=== PATIENT | female | born 1950 | race Caucasian/White ===

== ENCOUNTER 2016-06-15 10:56 | Inpatient (IN) | payer OTHER ==
[~2016-06-15] VITALS: Ht 165.1 cm; Wt 88.1 kg
[2016-06-15 10:45] VITALS: BP 140/49
[2016-06-15] MEDS ORDERED: KP VITAMIN PO (12:28)
[2016-06-15] MEDS ORDERED: CIT PO (12:30)
[2016-06-15] MEDS ORDERED: LANTUS SOL100 UNITS/ SC (12:30)
[2016-06-15] MEDS ORDERED: ACIDOPHILUS PO (12:30)
[2016-06-15] MEDS ORDERED: ACID REDUCER150 MG PO (12:31)
[2016-06-15] MEDS ORDERED: ALLOPURINOL100 MG PO (12:32)
[2016-06-15] MEDS ORDERED: ASPIRIN EC LOW81 MG PO (12:32)
[2016-06-15] MEDS ORDERED: TRADJENTA5 MG PO (12:32)
[2016-06-15] MEDS ORDERED: FERROUS SULFAT325 M1 PO (12:33)
[2016-06-15] MEDS ORDERED: LIPITOR40 MG PO (12:33)
[2016-06-15] MEDS ORDERED: CARDIZEM C2 PO (12:33)
[2016-06-15] MEDS ORDERED: PRINIVIL5 MG PO (12:34)
[2016-06-15] MEDS ORDERED: FLUTICASONE PR50 MCG (12:34)
--- NOTE | 2016-06-15 13:07 | HISTORY AND PHYSICAL ---
ADMITTED: 06/15/2016 HISTORY OF PRESENT ILLNESS: The patient is a 65-year-old -[place] female who was brought in because of mental status changes. The patient apparently has been sleeping more than a couple of hours over the past 5 days. She also is noted to be increasingly confused. The patient normally lives by herself but a week ago she started staying with her daughter and son-in-law. Family members reported that she was acting weird and would get up in the middle of the night. She was also being more forgetful and occasionally was not making sense. Today, she was noted to be unresponsive and very lethargic. She was started on Risperdal last night. She was seen at the [facility] ER where she was noted to have a sodium of 117 and a white count of 16 and a chloride level of 82. Her BUN was 39 and creatinine was 26. The patient was transferred to [facility] for further management. The patient is currently unable to give any history. History obtained from the chart and from the patient's son-in-law. MEDICAL/SURGICAL HISTORY: Her past medical history is pertinent for diabetes, history of coronary artery disease, history of hypertension, hyperlipidemia, hyperuricemia, and history of depression. No past surgical history. ALLERGIES: 1. ATENOLOL 2. DYAZIDE. 3. GABAPENTIN CAUSING MUSCLE WEAKNESS. 4. LOVASTATIN. 5. MESALAMINE. MEDICATIONS: 1. Include cholecalciferol. 2. Vitamin D3 2000 units daily. 3. Insulin glargine 14 units q.p.m. 4. Ranitidine 150 mg daily. 5. Tradjenta 5 mg daily which was started just recently. 6. Allopurinol 100 mg. 7. Baby aspirin 81 mg daily. 8. Atorvastatin 40 mg q.p.m. 9. Diltiazem 240 mg daily. 10. Iron 325 mg daily. 11. Flonase nasal spray 1 puff in each nostril daily. 12. Lisinopril 5 mg daily. 13. Sertraline 1 po daily SOCIAL HISTORY: She is a . She normally lives by herself and is able to take care of her ADLs. No smoking, no alcohol use, no recreational drug use. Her CODE STATUS IS A FULL CODE. PRIMARY CARE PROVIDER: Key Tolbert MD REVIEW OF SYSTEMS: The rest of her review of systems could not be obtained. PHYSICAL EXAMINATION: GENERAL: A well-developed, well-nourished female who is lethargic. She is able to open eyes and mumble a few words on stimulation and name calling. VITAL SIGNS: Her blood pressure is 142/72, pulse rate is 100, respirations are 12-18, temperature is 97.6. Oxygen saturation is 100% on room air. HEENT: She is atraumatic and normocephalic. No nasal congestion. Dry oral mucosa. LUNGS: Clear. No rales, wheezes or rhonchi. No use of accessory muscles of respiration. CARDIOVASCULAR: Regular rate and rhythm. S1 and S2 normal, no gallops, murmurs or rubs. ABDOMEN: Soft, nontender, normoactive bowel sounds, no guarding. EXTREMITIES: No edema, no cyanosis. NEURO: She is lethargic, able to open eyes and mumbles a few words with vigorous stimulation. No lateralizing signs. Cerebellar could not be tested. LAB/IMAGING: Her labs show hemoglobin of 10.3, hematocrit of 29.7, WBC of 16, platelets of 248. Sodium 117, potassium 4.8, chloride 82, BUN 39, creatinine 2.6, glucose 221. AST 305, ALT 164. Alcohol level less than 1, TSH 3. Urinalysis shows a specific gravity of 1.005, pH of 5. Negative nitrites. Chest x-ray is normal. CT of the head is normal. IMPRESSION/PLAN: 1. Hyponatremia, probably secondary to volume depletion, however would also need to consider SIADH. . The patient has already been given a liter of fluids. Will recheck a sodium level. If her mentation and sodium l;elevel do not iprove, mayl need to place the patient on fluid restriction. Will check a serum osmolarity, urine osmolarity and urine sodium. Her BUN and creatinine are slightly elevated but I suspect that she has some underlying chronic kidney disease from her diabetes. urine specifi gravity ios normal at 1.005. We will recheck a sodium level now and in 6 hours. patietn also on sertraline for depression so will hold medication at this time 2. Diabetes. Will place on Accu-Checks a.c. and at bedtime and sliding scale insulin. Will keep the patient n.p.o. because she is too lethargic to take in any p.o. medications. 3. Hypertension. Stable at the current time. Will place on nitroglycerin paste 1 inch q.6. When able to take p.o., will restart Cardizem. 4. Elevated liver function tests. Will check a lipase level. Also obtain an ultrasound of the liver, gallbladder, will also recheck levels in the a.m. and then an ammonia level as well as a PT/INR. 5. Anemia, probably secondary to chronic disease. Will recheck level in the a.m. Check iron, total iron binding capacity, ferritin, B12 and folate. 6. History of coronary artery disease. The patient is currently not having any chest pain. EKG 7. History of coronary artery disease. The patient is currently chest pain free. EKG does not show any acute ST-T wave changes. PLAN: We will continue to monitor on telemetry. Overall plan of care was discussed with the patient's son-in-law. They agreed and verbalized understanding. [place]endum: [place] [id number]. will continue to hydrate and repeat in am. Hold statins
[2016-06-15 14:03] VITALS: BP 123/61
--- NOTE | 2016-06-15 14:25 | DIAGNOSTIC IMAGING REPORT ---
PROCEDURE: US ABDOMEN ULTRASOUND-LIMITED INDICATION: elevated left TECHNIQUE: Nettles scale and color Doppler sonographic images of the abdomen were obtained without comparison. COMPARISON: None. FINDINGS: The liver (12.8cm) is heterogeneous with a coarse echo architecture. No mass or intrahepatic biliary dilatation. The gallbladder is not visualized. There is a cystic area in the gallbladder fossa. CT evaluation may be necessary. No pericholecystic fluid or Mohamud sign. The extrahepatic common duct is dilated measuring 9.5 mm The visualized pancreas is normal without ductal dilatation or peripancreatic fluid collection. The abdominal aorta is normal in its course and caliber. The retrohepatic inferior vena cava is patent. There is appropriate hepatopetal flow in the portal vein. The right kidney measures 8.9 cm in length. There is no perihepatic or perisplenic ascites. IMPRESSION: 1. Intrinsic liver disease. 2. Dilated common bile duct. Cystic area in the gallbladder fossa. Recommend CT.
[2016-06-15] MEDS ORDERED: SERTRALINE HCL50 MG PO (15:19)
[2016-06-15 19:02] VITALS: BP 101/50
[2016-06-15 22:46] VITALS: BP 79/43
[2016-06-16] VITALS (7 sets, daily range): BP systolic 106–137; BP diastolic 53–65
--- NOTE | 2016-06-16 07:45 | Progress Note ---
Subjective General The patient is a 65-year-old -Citizen Of [place] female who was brought in because of mental status changes. The patient apparently has been sleeping more than a couple of hours over the past 5 days prior to admit. She also is noted to be increasingly confused. Patient states she had a fall around 5 days ago. The patient normally lives by herself but a week ago she started staying with her daughter and son-in-law. Family members reported that she was acting weird and would get up in the middle of the night. She was also being more forgetful and occasionally was not making sense. Day of admit, she was noted to be unresponsive and very lethargic. She was started on Risperdal. She was seen at the [facility] ER where she was noted to have a sodium of 117 and a white count of 16 and a chloride level of 82. Her BUN was 39 and creatinine was 2.6. The patient was transferred to [facility] for further management. Patient is with elevated CK [place] low NA; [place] [address] on admit and improving (7796 this am.) Has low Na at 121 and getting fluids for CK so not much improved. Now improved hydration will try to limit fluids for Na correction. Is feeling better oriented to Date, month, location, self. Physical Exam Vital Signs / I&Os Vital Signs Date Time Temp Pulse Resp B/P Pulse O2 O2 Flow FiO2 Ox Delivery Rate 06/16 0701 98.1 103 16 133/65 100 Room Air 06/16 0222 100.2 97 16 122/53 100 Room Air 06/16 0128 104 16 122/58 100 Room Air 06/15 2246 99.7 93 14 79/43 100 Room Air 06/15 2000 Room Air 06/15 1902 98.1 108 16 101/50 100 06/15 1403 98.1 106 20 123/61 100 06/15 1135 Room Air 06/15 1045 98.8 103 13 140/49 100 Room Air I&O 06/16 0000 06/15 1600 06/15 0800 Intake Total 991 0 Output Total 125 50 Balance 866 -50 General Appearance Alert, Cooperative, Mild distress HEENT Normal exam Lungs Clear to auscultation, Normal air movement Cardiovascular Regular rate and rhythm, No murmurs, gallops, rubs Abdomen Soft, No tenderness Extremities No edema Neurological Normal speech LAB Results Laboratory Tests 06/16 06/16 06/16 06/15 06/15 0410 0410 0410 2140 1800 Chemistry Plasma Sodium (136 - 145 mmol/L) 121 121 121 Plasma Potassium (3.5 - 5.1 mmol/L) 4.2 4.0 Plasma Chloride (98 - 107 mmol/L) 89 89 CO2 (Enzymatic) (21 - 32 mmol/L) 21 24 BUN (7 - 18 mg/dL) 40 42 Creatinine (0.6 - 1.3 mg/dL) 2.5 2.7 Est GFR ( Amer) (mL/min) 25.06 22.93 Est GFR (Non-Af Amer) (mL/min) 20.67 18.92 Glucose (70 - 110 mg/dL) 150 151 Plasma Calcium (8.5 - 10.1 mg/dL) 6.9 7.6 Plasma Magnesium (1.8 - 2.4 mg/dL) 0.9 Total Bilirubin (0.0 - 1.0 mg/dL) 0.5 Direct Bilirubin (0 - 0.3 mg/dL) 0.2 AST (15 - 37 U/L) 276 ALT (12 - 78 U/L) 130 Alkaline Phosphatase (46 - 116 U/L) 86 Creatine Kinase (24 - 260 U/L) 7796 CK-MB (CK-2) (0.5 - 3.2 ng/mL) Pending CK/CKMB % Calc (0.0 - 4.0 %) Pending Total Protein (6.4 - 8.2 g/dL) 4.6 Albumin (3.3 - 5.0 g/dL) 2.4 Hematology WBC (4.5 - 11.5 K/uL) 13.1 RBC (4.00 - 5.20 M/uL) 2.81 Hgb (12.0 - 16.0 gm/dL) 8.1 Hct (36.0 - 46.0 %) 25.2 MCV (80 - 100 fL) 90 MCH (26 - 34 pg) 29 RDW (11.6 - 14.8 %) 13.7 Neut % (Auto) (50 - 75 %) 66.6 Lymph % (Auto) (25 - 40 %) 18.3 [place] % (Auto) (3 - 14 %) 14.2 Eos % (Auto) (0 - 4 %) 0.5 Baso % (Auto) (0 - 2 %) 0.4 Plt Count, EDTA (150 - 400 K/uL) 206 PUBS MCHC (31 - 37 g/dL) 32 06/15 06/15 06/15 06/15 06/15 1800 1440 1440 1440 1400 Chemistry Plasma Sodium (136 - 145 mmol/L) Cancelled 120 Plasma Potassium (3.5 - 5.1 mmol/L) Cancelled 4.6 Plasma Chloride (98 - 107 mmol/L) Cancelled 85 CO2 (Enzymatic) (21 - 32 mmol/L) Cancelled 21 BUN (7 - 18 mg/dL) Cancelled 39 Creatinine (0.6 - 1.3 mg/dL) Cancelled 2.4 Est GFR ( Amer) (mL/min) Cancelled 26.27 Est GFR (Non-Af Amer) (mL/min) Cancelled 21.67 Glucose (70 - 110 mg/dL) Cancelled 161 Plasma Calcium (8.5 - 10.1 mg/dL) Cancelled 7.9 Ammonia (11 - 32 umol/L) 14 Creatine Kinase (24 - 260 U/L) 94410 B-Natriuretic Peptide (5 - 100 pg/ml) 52.1 Lipase (73 - 393 U/L) 97 Serology Hep Bs Antigen (Negative) Negative Hep Bs Antibody (.) Non Reactive Hep B Core Total Ab (Negative) Negative Hep B Core IgM Ab (Negative) Negative Hepatitis C Antibody (0.0 - 0.9) <0.1 Urines Ur Random Sodium (20 - 110 meq/L) 7 06/15 06/15 06/15 1400 1200 1200 Chemistry Serum Osmolality Cancelled Lipase Cancelled Urines Urine Osmolality Pending Microbiology Date/Time Procedure - Status Source Growth 06/15 1600 MRSA Screen - RECD NASAL Assessment and Plan Problem List 1. Hyponatremia Plan Is at 121 and has been hydrating and stable. 2. Mental status change Plan Seems to be clearing on exam today 3. Hypomagnesemia Plan Will replace 4. Rhabdomyolysis Plan Continue to monitor, much imiproved this am. Watch on UO. 5. Renal insufficiency Plan Watch on labs and UO
--- NOTE | 2016-06-16 09:31 | DIAGNOSTIC IMAGING REPORT ---
PROCEDURE: CT ABDOMEN/PELVIS W/O CONTRAST INDICATION: intrinsic liver disease. cystic area in gallbladder TECHNIQUE: Noncontrast axial images were obtained of the entire abdomen and pelvis with sagittal and coronal reformations. COMPARISON: Abdominal ultrasound 06/15/2016 FINDINGS: ABDOMEN: 3 mm right middle lobe nodule. Heart size is normal. Cholecystectomy. No evidence of a cystic mass in the gallbladder fossa. Liver is normal size and appearance. Pancreas, spleen and adrenal glands are normal. Bilateral renal calcifications which may represent vascular calcifications versus nonobstructing calculi. Moderate atherosclerosis of the aorta. Nonspecific bowel gas pattern. PELVIS: The uterus and adnexa are unremarkable. Bhatt catheter in the bladder. No free fluid or inflammatory changes. Moderate degenerative changes of the spine. IMPRESSION: 1. Cholecystectomy. No evidence of a gallbladder fossa cystic mass 2. Liver is unremarkable. 3. Bilateral renal calcification suggestive of vascular calcifications although nonobstructing calculi are a consideration. 4. Bhatt catheter in place All CT scans at this facility use dose modulation, iterative reconstruction, and/or weight-based dosing when appropriate to reduce radiation dose to as low as reasonably achievable.
[2016-06-17 02:32] VITALS: BP 132/59
[2016-06-17 06:21] VITALS: BP 110/47
--- NOTE | 2016-06-17 08:44 | Progress Note ---
Subjective General Note Date: June 17, 2016 Admission Date: June 15, 2016 Hospital Day: 3 PCP: Key Tolbert M.D. M.D.Status: Inpatient Advanced Directive: FULL CODE Room: 301 Brief History: The patient is a 65-year-old black female with a significant past medical history of diabetes mellitus, coronary disease, hypertension, hyperlipidemia, depression, who presented to [facility] as a transfer from [facility] emergency department secondary to mental status changes. ER evaluation was consistent with hyponatremia with associated mental status changes. Secondary to the above, the patient was admitted by Dr. Parag Rachel for further evaluation and treatment. For other history present illness, past medical history, family history, social history, review of systems, and admission physical examination please see the patient's history and physical examination and ER visit note in the patient's medical record. Subjective: The patient states she is doing well today. No complaints. Mental status improved. Eating well. Patient requests: None Medications and Allergies Medications Current Medications Sig/Jessica Start time Last Medication Dose Route Stop Time Status Admin Aspirin 81 MG DAILY 06/16 0900 AC 06/16 PO 0907 Ferrous Sulfate 325 MG DAILY 06/16 0900 AC 06/16 PO 0903 Sodium Chloride 1,000 ML ASDIRECTED 06/16 0630 AC 06/17 IV 0234 Pantoprazole Sodium 40 MG DAILY@0600 06/16 0600 AC 06/17 IV 0541 Diltiazem HCl 240 MG DAILY 06/15 1912 AC 06/16 PO 0903 Heparin Sodium 5,000 UNITS TID 06/15 1400 AC 06/17 (Porcine) SC 0541 Insulin Human Lispro See Dose ACHS 06/15 1130 AC 06/16 Insts (1) SC 2117 Dose Instructions: (1)Insulin Human Lispro: LOW DOSE SLIDING SCALE Allergies Coded Allergies: Atenolol (06/15/16) Gabapentin (06/15/16) Hydrochlorothiazide w/Triamterene (From DYAZIDE) (06/15/16) Lovastatin (06/15/16) Mesalamine (06/15/16) Physical Exam Vital Signs / I&Os Vital Signs Date Time Temp Pulse Resp B/P Pulse O2 O2 Flow FiO2 Ox Delivery Rate 06/17 620 89 16 110/47 100 Room Air 06/17 0232 98.6 98 23 132/59 98 Room Air 01/20 2223 98.1 97 22 134/59 96 Room Air 06/16 1956 Room Air 06/16 1819 98.2 88 16 106/53 100 Room Air 06/16 1431 98.2 94 16 137/63 100 Room Air 06/16 1042 97.9 96 17 137/65 100 Room Air I&O 06/17 0000 06/16 1600 06/16 0800 Intake Total 1042 137 4477 Output Total 475 1175 760 Balance 630 -845 1406 General Appearance Alert, Oriented X3, Cooperative, No acute distress Lungs Clear to auscultation Cardiovascular Regular rate and rhythm, Normal S1 and S2 Abdomen Normal bowel sounds, Soft, No tenderness Extremities No cyanosis, No clubbing Neurological Cranial nerves intact, No lateralizing signs Psych/Mental Status Mental status normal, Mood normal LAB Results Laboratory Tests 06/17 06/17 06/16 0508 0500 1410 Chemistry Plasma Sodium (136 - 145 mmol/L) 128 125 Plasma Potassium (3.5 - 5.1 mmol/L) 4.4 4.5 Plasma Chloride (98 - 107 mmol/L) 98 93 CO2 (Enzymatic) (21 - 32 mmol/L) 23 21 BUN (7 - 18 mg/dL) 38 38 Creatinine (0.6 - 1.3 mg/dL) 1.9 2.1 Est GFR ( Amer) (mL/min) 34.39 30.64 Est GFR (Non-Af Amer) (mL/min) 28.38 25.28 Glucose (70 - 110 mg/dL) 142 225 Plasma Calcium (8.5 - 10.1 mg/dL) 8.0 7.9 Plasma Magnesium (1.8 - 2.4 mg/dL) 2.2 Total Bilirubin (0.0 - 1.0 mg/dL) 0.5 AST (15 - 37 U/L) 183 ALT (12 - 78 U/L) 118 Alkaline Phosphatase (46 - 116 U/L) 86 Creatine Kinase (24 - 260 U/L) 4031 Cancelled CK-MB (CK-2) (0.5 - 3.2 ng/mL) 4.9 CK/CKMB % Calc (0.0 - 4.0 %) 0.1 Total Protein (6.4 - 8.2 g/dL) 5.3 Albumin (3.3 - 5.0 g/dL) 2.3 Hematology WBC (4.5 - 11.5 K/uL) 10.8 RBC (4.00 - 5.20 M/uL) 2.94 Hgb (12.0 - 16.0 gm/dL) 8.5 Hct (36.0 - 46.0 %) 26.8 MCV (80 - 100 fL) 91 MCH (26 - 34 pg) 29 RDW (11.6 - 14.8 %) 13.8 Neut % (Auto) (50 - 75 %) 72.0 Lymph % (Auto) (25 - 40 %) 14.9 [place] % (Auto) (3 - 14 %) 11.8 Eos % (Auto) (0 - 4 %) 0.9 Baso % (Auto) (0 - 2 %) 0.4 Plt Count, EDTA (150 - 400 K/uL) 236 PUBS MCHC (31 - 37 g/dL) 32 Assessment and Plan Problem List 1. Hyponatremia Plan -Improved -Sodium 128 -Continue normal saline infusion -Monitor 2. Mental status change Plan -Much improved with improvement in sodium -Monitor 3. Hypomagnesemia Plan -Resolved -Magnesium 2.2 today. 4. Rhabdomyolysis Plan -Improved -CPK 4031 (7796-06/16/2016) -Continue IV fluid therapy -Monitor 5. Renal insufficiency Plan -Improved -BUN and creatinine-38/1.9 (40/2.5-06/16/2016) -Continue IV fluid hydration 6. Anemia Status Acute Onset Date Unknown Plan -Patient with mild anemia -Stable -Chek iron studies, B12, folate Current status: Fair, improved Anticipated discharge date: Anticipated discharge in 1-2 days Anticipated discharge placement: Home Patient care time: Time spent in chart review, patient interview, physical exam, CPOE, and care documentation: 25 minutes Visit to patient today: 1 Complexity of care: Moderate E&M Codes Rounding: Inpt-Moderate/[id number]
[2016-06-17 11:32] VITALS: BP 148/78
[2016-06-17 13:22] VITALS: BP 136/58
[2016-06-17 18:30] VITALS: BP 137/54
[2016-06-17 22:12] VITALS: BP 136/60
[2016-06-18 02:11] VITALS: BP 155/64
[2016-06-18 06:26] VITALS: BP 157/79
--- NOTE | 2016-06-18 07:50 | Progress Note ---
Subjective General Note Date: June 18, 2016 Admission Date: June 15, 2016 Hospital Day: 4 PCP: Key Tolbert M.D. M.D.Status: Inpatient Advanced Directive: FULL CODE Room: 301 Brief History: The patient is a 65-year-old black female with a significant past medical history of diabetes mellitus, coronary disease, hypertension, hyperlipidemia, depression, who presented to [facility] as a transfer from [facility] emergency department secondary to mental status changes. ER evaluation was consistent with hyponatremia with associated mental status changes. Secondary to the above, the patient was admitted by Dr. Parag Rachel for further evaluation and treatment. For other history present illness, past medical history, family history, social history, review of systems, and admission physical examination please see the patient's history and physical examination and ER visit note in the patient's medical record. Subjective: The patient states she is doing well today. No complaints. Mental status improved/normal. Eating well. Ambulating Patient requests: None Medications and Allergies Medications Current Medications Sig/Jessica Start time Last Medication Dose Route Stop Time Status Admin Aspirin 81 MG DAILY 06/16 0900 AC 06/17 PO 0926 Ferrous Sulfate 325 MG DAILY 06/16 09 AC 06/17 PO 0926 Pantoprazole Sodium 40 MG DAILY@0600 06/16 0600 AC 06/18 IV 0506 Diltiazem HCl 240 MG DAILY 06/15 1912 AC 06/17 PO 0926 Heparin Sodium 5,000 UNITS TID 06/15 1400 AC 06/18 (Porcine) SC 0506 Insulin Human Lispro See Dose ACHS 06/15 1130 AC 06/17 Insts (1) SC 2042 Dose Instructions: (1)Insulin Human Lispro: LOW DOSE SLIDING SCALE Allergies Coded Allergies: Atenolol (06/15/16) Gabapentin (06/15/16) Hydrochlorothiazide w/Triamterene (From DYAZIDE) (06/15/16) Lovastatin (06/15/16) Mesalamine (06/15/16) Physical Exam Vital Signs / I&Os Vital Signs Date Time Temp Pulse Resp B/P Pulse O2 O2 Flow FiO2 Ox Delivery Rate 06/18 06 97.9 87 16 157/79 100 Room Air 06/18 0211 98.4 95 21 155/64 100 Room Air 06/17 2211 98.1 97 16 136/60 100 Room Air 06/17 2025 Room Air 06/17 1830 98.1 90 15 137/54 Room Air 06/17 1454 98.1 06/17 1322 92 20 136/58 100 Room Air 06/17 1132 98.6 93 19 148/78 100 Room Air I&O 06/18 0000 06/17 1600 06/17 0800 Intake Total 280 100 Output Total 250 450 800 Balance -250 -170 -700 General Appearance Alert, Oriented X3, Cooperative, No acute distress Lungs Clear to auscultation, Normal air movement Cardiovascular Regular rate and rhythm, Normal S1 and S2 Abdomen Normal bowel sounds, Soft, No tenderness Extremities No cyanosis, No clubbing, No edema Neurological Grossly normal. Psych/Mental Status Mental status normal, Mood normal LAB Results Laboratory Tests 06/18 06/18 0502 0502 Chemistry Plasma Sodium (136 - 145 mmol/L) 134 Plasma Potassium (3.5 - 5.1 mmol/L) 4.7 Plasma Chloride (98 - 107 mmol/L) 101 CO2 (Enzymatic) (21 - 32 mmol/L) 24 BUN (7 - 18 mg/dL) 39 Creatinine (0.6 - 1.3 mg/dL) 1.7 Est GFR ( Amer) (mL/min) 39.10 Est GFR (Non-Af Amer) (mL/min) 32.26 Glucose (70 - 110 mg/dL) 229 Plasma Calcium (8.5 - 10.1 mg/dL) 8.6 Iron (35 - 150 ug/dL) 32 TIBC (260 - 445 ug/dL) 148 Iron Saturation (15 - 50 %) 22 Total Bilirubin (0.0 - 1.0 mg/dL) 0.6 AST (15 - 37 U/L) 110 ALT (12 - 78 U/L) 106 Alkaline Phosphatase (46 - 116 U/L) 87 Total Protein (6.4 - 8.2 g/dL) 5.7 Albumin (3.3 - 5.0 g/dL) 2.5 Vitamin B12 (211 - 946 pg/mL) 1013 Folate (>3.0 ng/mL) 9.3 Hematology WBC (4.5 - 11.5 K/uL) 11.0 RBC (4.00 - 5.20 M/uL) 3.02 Hgb (12.0 - 16.0 gm/dL) 8.6 Hct (36.0 - 46.0 %) 27.6 MCV (80 - 100 fL) 91 MCH (26 - 34 pg) 29 RDW (11.6 - 14.8 %) 14.2 Neut % (Auto) (50 - 75 %) 64 Lymph % (Auto) (25 - 40 %) 26 [place] % (Auto) (3 - 14 %) 5 Eos % (Auto) (0 - 4 %) 1 Baso % (Auto) (0 - 2 %) 1 Band Neutrophils % (0 - 8 %) 3 Metamyelocytes % (0 - 1 %) 0 Myelocytes (0 - 1 %) 0 Other Cell Type FEW GIANT PLATELETS Plt Count, EDTA (150 - 400 K/uL) 257 PUBS MCHC (31 - 37 g/dL) 31 Microbiology Date/Time Procedure - Status Source Growth 06/17 1247 MRSA Screen - CAN NASAL Cancelled: Cancelled via OE: WRONG PATIENT Assessment and Plan Problem List 1. Hyponatremia Plan -Improved -Sodium today 134 -Liberalize fluid restriction -Monitor 2. Mental status change Plan -Resolved -Patient appears at baseline mental status 3. Hypomagnesemia Plan -Patient with findings of hypomagnesemia -Resolved 4. Rhabdomyolysis Plan -Patient admitted with findings of rhabdomyolysis -CPK much improved -Renal function continues to improve -Monitor -CPK today 2053 (4031-06/17/2016) -Hold Lipitor 5. Renal insufficiency Plan -Continues to improve -BUN and creatinine 39/1.7 today (38/1.9-06/17/2016) -Monitor -Hold HENRY inhibitor 6. Abnormal LFTs Status Acute Onset Date Unknown Plan -Patient with persistent LFT abnormalities -Transaminases improved. -Monitor with repeat levels in a.m. -Hold Lipitor -Outpatient follow-up with PCP with repeat transaminases in 2-4 weeks 7. Anemia Status Acute Onset Date Unknown Plan -Patient with findings of anemia -Iron studies, B12, folate within normal limits -Monitor -H&H today: 8.6/27.6 Current status: Fair, improved Anticipated discharge date: Anticipated discharge in a.m. Anticipated discharge placement: Home Patient care time: Time spent in chart review, patient interview, physical exam, CPOE, and care documentation: 35 minutes Visit to patient today: 2 Complexity of care: High E&M Codes Rounding: Inpt-High/[id number]
[2016-06-18 12:00] VITALS: BP 152/68
[2016-06-18 14:27] VITALS: BP 131/67
[2016-06-18 18:34] VITALS: BP 152/75
[2016-06-19 03:14] VITALS: BP 153/69
[2016-06-19 07:10] VITALS: BP 155/65
--- NOTE | 2016-06-19 08:01 | Progress Note ---
Subjective General Note Date: June 19, 2016 Admission Date: June 15, 2016 Hospital Day: 5 PCP: Key Tolbert M.D. M.D.Status: Inpatient Advanced Directive: FULL CODE Room: 301 Brief History: The patient is a 65-year-old black female with a significant past medical history of diabetes mellitus, coronary disease, hypertension, hyperlipidemia, depression, who presented to [facility] as a transfer from [facility] emergency department secondary to mental status changes. ER evaluation was consistent with hyponatremia with associated mental status changes. Secondary to the above, the patient was admitted by Dr. Parag Rachel for further evaluation and treatment. For other history present illness, past medical history, family history, social history, review of systems, and admission physical examination please see the patient's history and physical examination and ER visit note in the patient's medical record. Subjective: The patient states she is doing well today. No complaints. Mental status improved/normal. Eating well. Ambulating Patient requests: None Medications and Allergies Medications Current Medications Sig/Jessica Start time Last Medication Dose Route Stop Time Status Admin Pantoprazole Sodium 40 MG 0600 06/19 0600 AC 06/19 Sesquihydrate PO 0537 Docusate Sodium 250 MG BID 06/18 1315 AC 06/18 PO 2042 Insulin Glargine 14 UNITS DAILY 06/18 1032 AC 06/18 SC 1156 Allopurinol 100 MG DAILY 06/18 1030 AC 06/18 PO 1202 Cholecalciferol 2,000 UNIT DAILY 06/18 1030 AC 06/18 PO 1156 Aspirin 81 MG DAILY 06/16 0900 AC 06/18 PO 0827 Ferrous Sulfate 325 MG DAILY 06/16 0900 AC 06/18 PO 0827 Diltiazem HCl 240 MG DAILY 06/15 1912 AC 06/18 PO 0827 Heparin Sodium 5,000 UNITS TID 06/15 1400 AC 06/19 (Porcine) SC 0537 Insulin Human Lispro See Dose ACHS 06/15 1130 AC 06/18 Insts (1) SC 204 Dose Instructions: (1)Insulin Human Lispro: LOW DOSE SLIDING SCALE Allergies Coded Allergies: Atenolol (06/15/16) Gabapentin (06/15/16) Hydrochlorothiazide w/Triamterene (From DYAZIDE) (06/15/16) Lovastatin (06/15/16) Mesalamine (06/15/16) Physical Exam Vital Signs / I&Os Vital Signs Date Time Temp Pulse Resp B/P Pulse O2 O2 Flow FiO2 Ox Delivery Rate 06/19 0710 98.4 92 20 155/65 100 Room Air 06/19 0314 98.4 100 16 153/69 94 Room Air 06/18 1929 Room Air 06/18 1834 98.1 88 20 152/75 100 Room Air 06/18 1427 97.9 95 20 131/67 100 Room Air 06/18 1200 97.9 95 20 152/68 99 Room Air I&O 06/19 0000 06/18 1600 06/18 0800 Intake Total 570 240 200 Output Total 450 300 250 Balance 120 -60 -50 General Appearance Alert, Oriented X3, Cooperative, No acute distress Lungs Clear to auscultation Cardiovascular Regular rate and rhythm, Normal S1 and S2 Abdomen Normal bowel sounds, Soft, No tenderness Extremities No cyanosis, No clubbing, No edema Neurological Grossly normal Psych/Mental Status Mental status normal, Mood normal LAB Results Laboratory Tests 06/19 0509 Chemistry Plasma Sodium (136 - 145 mmol/L) 133 Plasma Potassium (3.5 - 5.1 mmol/L) 4.9 Plasma Chloride (98 - 107 mmol/L) 99 CO2 (Enzymatic) (21 - 32 mmol/L) 24 BUN (7 - 18 mg/dL) 38 Creatinine (0.6 - 1.3 mg/dL) 1.8 Est GFR ( Amer) (mL/min) 36.61 Est GFR (Non-Af Amer) (mL/min) 30.20 Glucose (70 - 110 mg/dL) 231 Plasma Calcium (8.5 - 10.1 mg/dL) 8.9 Total Bilirubin (0.0 - 1.0 mg/dL) 0.8 AST (15 - 37 U/L) 83 ALT (12 - 78 U/L) 108 Alkaline Phosphatase (46 - 116 U/L) 100 Creatine Kinase (24 - 260 U/L) 1394 CK-MB (CK-2) (0.5 - 3.2 ng/mL) Pending CK/CKMB % Calc (0.0 - 4.0 %) Pending Total Protein (6.4 - 8.2 g/dL) 5.9 Albumin (3.3 - 5.0 g/dL) 3.0 Hematology WBC (4.5 - 11.5 K/uL) 13.0 RBC (4.00 - 5.20 M/uL) 3.32 Hgb (12.0 - 16.0 gm/dL) 9.6 Hct (36.0 - 46.0 %) 30.4 MCV (80 - 100 fL) 92 MCH (26 - 34 pg) 29 RDW (11.6 - 14.8 %) 13.9 Neut % (Auto) (50 - 75 %) 69.7 Lymph % (Auto) (25 - 40 %) 20.6 Parke % (Auto) (3 - 14 %) 7.0 Eos % (Auto) (0 - 4 %) 2.1 Baso % (Auto) (0 - 2 %) 0.6 Plt Count, EDTA (150 - 400 K/uL) 284 PUBS MCHC (31 - 37 g/dL) 32 Assessment and Plan Problem List 1. Mental status change Plan -resolved -Discharge today 2. Hyponatremia Plan -Much improved-sodium 133 -2000 cc fluid restriction on discharge -Discharged today 3. Hypomagnesemia Plan -Resolved -Discharge today 4. Rhabdomyolysis Plan -Much improved -Discharged today -No statins until approved by PCP 5. Renal insufficiency Plan -Stable -Follow up with PCP/nephrology 6. Anemia Status Acute Onset Date Unknown Plan -Mild -H&H: 9.6/30.4 (stable) -Serum iron studies, B12, folate within normal limits -Follow up with PCP 7. Abnormal LFTs Status Acute Onset Date Unknown Plan -Mild -Stable -Hold statins until approved by PCP Current status: Fair, improved Anticipated discharge date: Today Anticipated discharge placement: today Patient care time: Time spent in chart review, patient interview, physical exam, CPOE, and care documentation: Greater than 30 minutes Visit to patient today: 2 Complexity of care: Moderate For other recommendations regarding discharge diet, activity, followup, and discharge medications please see the patient's discharge instructions. Greater than 30 min. was spent in the patient's discharge preparation including discharge interview and physical examination, progress note, discharge instructions, and discharge summary E&M Codes Discharge: Inpt >30 min spent/42012
[2016-06-19] MEDS ORDERED: MAG6464 MG PO (08:55)
--- NOTE | 2016-06-19 08:55 | Provider's Discharge Care Plan ---
Problem, Goal, Plan Problem List 1. Hyponatremia Goals: Improve disease control, Prevent disease progress Instructions: Follow up as directed, Take meds as directed, 2000 cc per day fluid restriction. Follow-up for repeat check of sodium level in 3-5 days with your family physician 2. Hypomagnesemia Goals: Improve disease control, Prevent disease progress Instructions: Follow up as directed, Take meds as directed 3. Renal insufficiency Goals: Improve disease control, Prevent disease progress Instructions: Follow up as directed, Take meds as directed, Renal function rechecked with your family physician. 4. Anemia Goals: Improve disease control, Prevent disease progress Instructions: Follow up as directed, Take meds as directed, have your blood count rechecked here family physician 5. Abnormal LFTs Goals: Improve disease control, Prevent disease progress Instructions: have your liver function rechecked with her family physician. Do not take Lipitor until you have discussed its use with your family physician 6. UTI (urinary tract infection) Goals: Improve disease control, Prevent disease progress Instructions: Follow up as directed, Take meds as directed, Have your family physician recheck a urinalysis following completion of your antibiotics
[2016-06-19] MEDS ORDERED: KEFLEX500 M1 PO (10:46)
--- NOTE | 2016-06-19 11:21 | Discharge Summary ---
Discharge Summary Report Admit Date 06/15/16 Discharge Date 06/19/16 Admission Diagnosis 1. Mental status changes 2. Hyponatremia 3. Rhabdomyolysis 4. Chronic kidney disease 5. Elevated liver function tests 6. Diabetes mellitus 7. Anemia Discharge Diagnosis 1. Mental status changes 2. Hyponatremia 3. Rhabdomyolysis 4. Chronic kidney disease 5. Elevated liver function tests 6. Diabetes mellitus 7. Anemia 8. UTI Brief History The patient is a 65-year-old black female with a significant past medical history of diabetes mellitus, coronary disease, hypertension, hyperlipidemia, depression, who presented to [facility] as a transfer from [facility] emergency department secondary to mental status changes. ER evaluation was consistent with hyponatremia with associated mental status changes. Secondary to the above, the patient was admitted by Dr. Parag Rachel for further evaluation and treatment. For other history present illness, past medical history, family history, social history, review of systems, and admission physical examination please see the patient's history and physical examination and ER visit note in the patient's medical record. Hospital Course The following problems and their management were noted during the patient's hospitalization: 1. Mental status changes The patient presented with findings of mental status changes. These were felt secondary to hyponatremia. They resolved and the patient's hospitalization with correction of her hyponatremia. At the time of discharge the patient exhibited normal mental status. 2. Hyponatremia The patient presented with findings of hyponatremia. This gradually resolved during her hospital stay. Her sodium was borderline low at 133 at discharge. She was instructed to follow 2000 cc fluid restriction on discharge. Follow-up with PCP this week 3. Rhabdomyolysis The patient exhibited rhabdomyolysis on admission. This gradually improved during her hospital stay. Renal function was stable. Her statins were discontinued at the time of discharge until follow-up with her PCP secondary to possible contribution to her rhabdomyolysis. 4. Chronic kidney disease Stable. Outpatient follow-up with PCP/nephrology. BUN/creatininewere noted to be 38/1.8 on discharge. 5. Elevated liver function tests The patient exhibited mild LFT elevations. These improved throughout the patient's hospitalization. Her statins were held at the time of discharge secondary to possible exacerbation of this issue. The patient will follow-up with her this week for repeat LFTs and further evaluation as needed. CT of abdomen showed no significant hepatic/biliary tree abnormalities. 6. Diabetes mellitus Patient with long-standing history of diabetes mellitus. Blood sugars adequate controlled on outpatient regimen on discharge. Monitor blood sugars. Follow-up with PCP this week. 7. Anemia Mild. Iron studies, B12, folate within normal limits. Follow-up with PCP this week. H&H on discharge was noted to be 9.6/30.4 (stable). 8. UTI The patient was noted to have findings of UTI. She was discharged on Keflex to complete a full course of therapy. Culture and sensitivity pending at time of discharge. Follow up PCP this week for adjustments in therapy/repeat urinalysis. Lab/Imaging Laboratory Tests 06/19 06/19 0930 0502 Chemistry Plasma Sodium (136 - 145 mmol/L) 133 Plasma Potassium (3.5 - 5.1 mmol/L) 4.9 Plasma Chloride (98 - 107 mmol/L) 99 CO2 (Enzymatic) (21 - 32 mmol/L) 24 BUN (7 - 18 mg/dL) 38 Creatinine (0.6 - 1.3 mg/dL) 1.8 Est GFR ( Amer) (mL/min) 36.61 Est GFR (Non-Af Amer) (mL/min) 30.20 Glucose (70 - 110 mg/dL) 231 Plasma Calcium (8.5 - 10.1 mg/dL) 8.9 Total Bilirubin (0.0 - 1.0 mg/dL) 0.8 AST (15 - 37 U/L) 83 ALT (12 - 78 U/L) 108 Alkaline Phosphatase (46 - 116 U/L) 100 Creatine Kinase (24 - 260 U/L) 1394 CK-MB (CK-2) (0.5 - 3.2 ng/mL) 2.7 CK/CKMB % Calc (0.0 - 4.0 %) 0.2 Total Protein (6.4 - 8.2 g/dL) 5.9 Albumin (3.3 - 5.0 g/dL) 3.0 Hematology WBC (4.5 - 11.5 K/uL) 13.0 RBC (4.00 - 5.20 M/uL) 3.32 Hgb (12.0 - 16.0 gm/dL) 9.6 Hct (36.0 - 46.0 %) 30.4 MCV (80 - 100 fL) 92 MCH (26 - 34 pg) 29 RDW (11.6 - 14.8 %) 13.9 Neut % (Auto) (50 - 75 %) 69.7 Lymph % (Auto) (25 - 40 %) 20.6 Webb % (Auto) (3 - 14 %) 7.0 Eos % (Auto) (0 - 4 %) 2.1 Baso % (Auto) (0 - 2 %) 0.6 Plt Count, EDTA (150 - 400 K/uL) 284 PUBS MCHC (31 - 37 g/dL) 32 Urines Urine Color YELLOW Urine Appearance SL CLOUDY Urine pH (5.0 - 8.0) 5.5 Ur Specific [place] (1.010 - 1.030) 1.010 Urine Protein (NEGATIVE) NEGATIVE Urine Ketones (NEGATIVE) NEGATIVE Urine Blood (NEGATIVE) 1+ Urine Nitrite (NEGATIVE) NEGATIVE Urine Bilirubin (NEGATIVE) NEGATIVE Urine Urobilinogen (0.2 - 1.0 EU/dL) 0.2 Ur Leukocyte Esterase (NEGATIVE) POSITIVE Urine RBC (0 - 1 rbc/hpf) 1-3 Urine WBC (0 - 1 wbc/hpf) 50-75 Ur Epithelial Cells (0 - 5 EPI/hpf) 1-3 Urine Bacteria (NONE SEEN) MODERATE (2+ TO 3+) Urine Glucose (NEGATIVE) 1+ Urine Comment CULTURE INDICATED Microbiology Date/Time Procedure - Status Source Growth 06/19 0930 Urine Culture - RECD URINE CC Discharge Instructions/Meds For other recommendations regarding discharge diet, activity, followup, and discharge medications please see the patient's discharge instructions. Discharge condition: Fair, improved Greater than 30 min. was spent in the patient's discharge preparation including discharge interview and physical examination, progress note, discharge instructions, and discharge summary The patient was interviewed and examined on the day of discharge. E&M Codes Discharge: Inpt >30 min spent/[id number]
[2016-06-19 11:28] VITALS: BP 152/83
== END 2016-06-19 12:35 | disposition home or self-care (01) | DRG 422 ==
LOC: CC SRH 10:56 → TRANS SRH 10:56 → CC SRH 11:00
PROVIDERS: ADMIT Internal Medicine
DX: E87.1 Hypo-osmolality and hyponatremia (principal); E86.9 Volume depletion, unspecified; R40.0 Somnolence; M62.82 Rhabdomyolysis; E83.42 Hypomagnesemia; E11.22 Type 2 diabetes mellitus with diabetic chronic kidney disease; I12.9 Hypertensive chronic kidney disease with stage 1 through stage 4 chronic kidney disease, or unspecified chronic kidney disease; N18.9 Chronic kidney disease, unspecified; D63.1 Anemia in chronic kidney disease; Z79.4 Long term (current) use of insulin; I25.10 Atherosclerotic heart disease of native coronary artery without angina pectoris
CPT/HCPCS: 85241; 90004; 90047; 90074; 90075; 90077; 90078; 90098; 90100; 90148; 90469; 90617; 90977; 91295; 91320; 91504; 91505; 91588; 91672; 92132; 92235; 92350; 92610; 92668; 92670; 92710; 92720; 92810; 95059; 95061; 97581; 99777